=== PATIENT | female | born 1945 | race African-American/Black ===

== ENCOUNTER 2022-01-13 07:37 | Inpatient (IN) | payer MEDICARE, OTHER ==
[~2022-01-13] VITALS: Ht 162.6 cm; Wt 53.1 kg
[2022-01-13] VITALS (38 sets, daily range): BP systolic 66–130; BP diastolic 34–58
[2022-01-13] MEDS ORDERED: VANCOMYCIN 1 GM in IV D5W 250 ML IV ONE (08:00)
[2022-01-13] MEDS ORDERED: CEFEPIME 1 GM in IV D5W 50 ML IV ONE (08:00)
[2022-01-13] MEDS ORDERED: IV NS 0.9% 1,000 ML BAG IV ONE (08:00)
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
[2022-01-13] MEDS ORDERED: MINE133E RC (08:07)
[2022-01-13] MEDS ORDERED: FERR325T23 PO (08:07)
[2022-01-13] MEDS ORDERED: ASCO-352 PO (08:07)
[2022-01-13] MEDS ORDERED: ACET-868 PO (08:07)
[2022-01-13] MEDS ORDERED: MAGN400O6 PO (08:07)
[2022-01-13] MEDS ORDERED: NUT.237L30 GT (08:07)
[2022-01-13] MEDS ORDERED: TYL2T PO (08:07)
[2022-01-13] MEDS ORDERED: DOCU-141 PO (08:07)
[2022-01-13] MEDS ORDERED: LEVO112T2 PO (08:07)
[2022-01-13] MEDS ORDERED: ACET-2605 PO (08:07)
[2022-01-13] MEDS ORDERED: SENN-261 PO (08:07)
[2022-01-13] MEDS ORDERED: MULT-447 PO (08:07)
--- NOTE | 2022-01-13 08:11 | NUR ---
IV LINE IS ESTABLISHED, BLOOD SPECIMEN COLLECTED AND SENT TO THE LAB. THE LINE IS SALINE LOCKED.
--- NOTE | 2022-01-13 08:11 | NUR ---
URINE COLLECTED AND SENT TO THE LAB
[2022-01-13 08:23] LABS: BASOPHILS % (AUTO) 0.1 % (0.0-2.0); HEMATOCRIT 23 % (33-45); HEMOGLOBIN 7.4 g/dL (11.5-14.8); LYMPHOCYTES # (AUTO) 1.3 K/uL (0.8-4.8); MEAN CORPUSCULAR HGB CONC 33 g/dl (31.0-36.0); MEAN CORPUSCULAR VOLUME 94 fL (82-100); MONOCYTES # (AUTO) 0.5 K/uL (0.1-1.30); MONOCYTES % (AUTO) 3.8 % (2.0-12.0); NEUTROPHILS # (AUTO) 10.4 K/uL (1.8-8.9); NEUTROPHILS % (AUTO) 85.1 % (43.0-81.0); PLATELET COUNT (AUTO) 266 K/uL (150-450); WHITE BLOOD COUNT (AUTO) 12.2 K/uL (4.3-11.0)
--- NOTE | 2022-01-13 08:24 | NUR ---
COVID SWAB DONE AND SENT TO LAB
[2022-01-13 08:49] LABS: SERUM AMMONIA 125 umol/L (11-32)
[2022-01-13 09:49] LABS: BILIRUBIN,URINE NEGATIVE (NEGATIVE); COLOR,URINE YELLOW (YELLOW); LEUKOCYTE ESTERASE ,URINE SMALL (NEGATIVE); NITRITE, URINE NEGATIVE (NEGATIVE); PROTEIN,URINE TRACE mg/dl (NEGATIVE); UGLUCOSE NEGATIVE (NEGATIVE); UROBILINOGEN,URINE 0.2 EU/dL (0.2)
--- NOTE | 2022-01-13 10:10 | NUR ---
midline ordered by Dr Cisneros. noted and carried out. Nursing sup made aware.
--- NOTE | 2022-01-13 10:10 | NUR ---
DR HUFF MADE AWARE BP IF 94/49 AND PULSE 72. WAITING FOR ORDERS.
[2022-01-13 10:12] LABS: POTASSIUM 4.5 mmol/L (3.5-5.1); SODIUM SERUM 139 mmol/L (136-145)
[2022-01-13 10:13] LABS: CARBON DIOXIDE 11 mmol/L (21-32); CHLORIDE 104 mmol/L (98-107); CREATININE 3.5 mg/dL (0.6-1.3); GLUCOSE 161 mg/dL (74-106); UREA NITROGEN, BLOOD > 150 mg/dL (7-18)
--- NOTE | 2022-01-13 10:14 | NUR ---
CALLED NURSING SUP REGARDING PT BED
[2022-01-13] MEDS ORDERED: MAGNESIUM HYDROXIDE 30 ML UDC PO PRN (10:30)
[2022-01-13] MEDS ORDERED: MIDODRINE HCL (5MG) 5 MG TABLET PO STA (10:35)
[2022-01-13 10:36] LABS: ALANINE AMINOTRANSFERASE 27 U/L (12-78); ALBUMIN 2.2 g/dL (3.4-5.0); ALKALINE PHOSPHATASE 51 U/L (46-116); ASPARTATE AMINOTRANSFERASE 47 U/L (15-37); BILIRUBIN,DIRECT 0.1 mg/dL (0.0-0.2); BILIRUBIN,TOTAL 0.4 mg/dL (0.2-1.0); TOTAL PROTEIN, SERUM 6.3 g/dL (6.4-8.2)
[2022-01-13] MEDS ORDERED: MIDODRINE HCL (5MG) 5 MG TABLET ONE (10:39)
[2022-01-13 11:00] LABS: PH,URINE >9.0 (5.0-8.0)
[2022-01-13] MEDS ORDERED: IV NS 0.9% 1,000 ML IV ONE ×2 (11:00→14:30)
[2022-01-13 11:08] LABS: ABG BASE EXCESS -14.7 mmol/L; ABG PCO2 23.4 mmHg (35.0-45.0); ABG PH 7.275 (7.350-7.450); ABG PO2 139.5 mmHg (75.0-100.0); COHb 0.5 % (0.5-1.5); MetHb 0.3 % (0.0-1.5); SITE, ABG Left Radial; VENT MODE, BG N/C
--- NOTE | 2022-01-13 11:39 | NUR ---
ROOM 253
[2022-01-13 11:54] LABS: BACTERIA,URINE Many /HPF (None Seen); RBC,URINE NONE SEEN /HPF (0-2); SQUAMOUS EPITHELIAL CELL,UR Few /HPF (None Seen)
[2022-01-13 11:55] LABS: TRIPLE PHOSPHATE CRYSTAL,UR Moderate /HPF (None Seen)
--- NOTE | 2022-01-13 12:00 | NUR ---
REPORT GIVEN TO NURSE DUDLEY FOR JAD
--- NOTE | 2022-01-13 12:26 | NUR ---
THE PATIENT IS TRANSFERED TO ROOM 253 IN STABLE CONDITION AND PER ACLS POLICY
[2022-01-13] MEDS ORDERED: FERROUS SULFATE (325 MG) 325 MG/TAB TABLET PO SCH (13:00)
--- NOTE | 2022-01-13 13:00 | NUR ---
ICU/RN PT ADMITTED FROM ER .ON 15L NRM SAT O2-98%.HAS SOB .ALOC.RESPONDING ON PAIN STIMULATION.IV-HL.BP LOW.AFEBRILE.HAS G-TUBE CLAMPED.ABDOMEN DISTENDED G-TUBE SIDE RED AND SWOLLEN WITH FOUL GASTRIC DISCHARGE AROUND AREA .MD NOTIFIED.F/C IN PLACE WITH YELLOW CLOUDY URINE WITH BAD SMELL.SACRAL WOUND 2.0-1.0-0.5 CM .DRESSING APPLIED.PHOTO TAKEN.WOUND CONSULT ORDERED.PT VOMIT.WITH FEEDING COLOR GASTRIC RESIDUAL. MD NOTIFIED.ZOFRAN ORDERED.1 L BOLUS ORDERED.OK START LEVOPHED IF NEEDED.SUCTION PROVIDED.REPOSITION FOR COMFORT.
[2022-01-13] MEDS ORDERED: ONDANSETRON HCL/PF 4 MG/2 ML VIAL IV PRN (13:30)
[2022-01-13] MEDS: PIPERACILLIN /TAZOBACTAM 2.25 G in IV D5W 50 ML IV SCH ×2 (13:56→20:07)
[2022-01-13 14:12] LABS: ABG BASE EXCESS -14.7 mmol/L; ABG OXYGEN SATURATION 98.5 % (92.0-98.5); ABG PH 7.271 (7.350-7.450); ABG PO2 333.3 mmHg (75.0-100.0); AaDO2 355.7 mmHg; COHb 0.3 % (0.5-1.5); MetHb 0.1 % (0.0-1.5); O2Hb 98.1 % (94.0-97.0); SITE, ABG Right Radial
[2022-01-13] MEDS ORDERED: NOREPINEPHRINE 8 MG in IV NS 0.9% 242 ML IV PRN (14:30)
[2022-01-13] MEDS: SOD FERRIC GLUC 125 MG in IV NS 0.9% 100 ML IV SCH (14:49)
[2022-01-13] MEDS: Sodium Bicarbonate 100 MEQ in IV D5W 1,000 ML IV SCH (14:49)
--- NOTE | 2022-01-13 14:59 | NUR ---
INTUBATED PT 7.5 @23, PULLED BACK ETT [address] SONG. CURRENTLY ON 21 CM LIP LINE. BILATERAL CHEST RISE. PLACED MECHANICAL VENT PER ORDER SETTINGS. PT SUCTIONED. ETT SECURED AND PATENT. VENT ALARMS ARE ON AND AUDIBLE. NO RESPIRATORY DISTRESS OR SOB NOTED AT THIS TIME. Addendum: 01/13/22 at 1501 by GRISELDA RAMÍREZ RT Amended: Links added.
--- NOTE | 2022-01-13 15:00 | NUR ---
ICU/RN DR MCKEON SEEN THE PT, ABG DONE.PT IS INTUBATED BY ER DOCTOR.DIPRIVAN STARTED ,LEVOPHED STARTED,NEW IV FLUIDS ORDERED BY DR MCKEON. RIGHT PICC LINE INSERTED.CONTINUE MONITORING.
[2022-01-13] MEDS: PROPOFOL 100 ML IV PRN (15:29)
[2022-01-13] MEDS ORDERED: NOREPINEPHRINE 8 MG in IV NS 0.9% 250ML IV PRN (15:30)
[2022-01-13] MEDS: NOREPINEPHRINE 8 MG in IV NS 0.9% 242 ML IV PRN (15:33)
[2022-01-13 16:02] LABS: ABG BASE EXCESS -15.1 mmol/L; ABG OXYGEN SATURATION 99.3 % (92.0-98.5); ABG PCO2 21.6 mmHg (35.0-45.0); ABG PH 7.285 (7.350-7.450); ABG PO2 454.3 mmHg (75.0-100.0); AaDO2 237.1 mmHg; COHb 0.8 % (0.5-1.5); MetHb 0.2 % (0.0-1.5); O2Hb 98.3 % (94.0-97.0); SITE, ABG Right Radial; VENT MODE, BG AC 26 450 +5 100%
[2022-01-13] MEDS ORDERED: ETOMIDATE 2 MG/ML VIAL IV ONE (16:41)
[2022-01-13] MEDS ORDERED: SUCCINYLCHOLINE CHLORIDE 20 MG/ML VIAL IV ONE (16:41)
[2022-01-13] MEDS ORDERED: HEPARIN SODIUM, PORCINE 5000 UNITS/1 ML VIAL SQ SCH (17:00)
--- NOTE | 2022-01-13 18:00 | NUR ---
ICU/RN PM CARE PROVIDED.WOUND DRESSING DONE ORDERED.DUE MEDS ARE GIVEN .BS DONE.OG TUBE WAS INSERTED.600 ML GASTRIC OUTPUT .G-TUBE CLAMPED.PT IS NPO. 1000ML FROM F/C CLOUDY URINE. PT IS ON DIPRIVAN.,LEVOPHED,BICARB DRIPS ORDERED.CONTINUE MONITORING.
[2022-01-13 18:26] LABS: BAND % (MANUAL) 8 % (0.0-5.0); LYMPHOCYTES % (MANUAL) 13 % (16-48); MONOCYTES % (MANUAL) 8 % (0-11.0); NEUTROPHILS % (MANUAL) 71 (42-76)
--- NOTE | 2022-01-13 19:00 | NUR ---
RECEIVED PT ON BED ORALLY INTUBATED , SETTING PER MD, FIO2 60% PEEP 5, TELE MONITOR READS SINUS RHYTHM 80'S PT HAVE PATTI PICC WITH ONGOING LEVOPHED @ 0.2 MCG/KG/MIN WILL TITRATE PER PROTOCOL,PROPOFOL@ 20 MCG/KG/MIN, AND NaHCO3 DRIP @ 100ML/HR HAVE RAC#18 PATENT AND FLUSHED HAVE LOVELACE IN PLACE WITH YELLOW URINE DRAINING VIA GRAVITY, HAVE GTUBE AND OGTUBE ON PLACED CLAMPED BED ON LOWEST POSITION AND LOCKED SIDERAILS UP X 2 WILL CONT TO MONITOR
[2022-01-13] MEDS ORDERED: DEXTROSE 50%-WATER 50 ML DISP.SYRIN IV PRN (19:30)
[2022-01-13] MEDS: Z GUARD REMEDY 4 OZ OINT TP SCH (20:07)
[2022-01-13] MEDS: IV NS 0.9% 250 ML IV PRN (21:13)
[2022-01-13] MEDS: BLOOD SUGAR DIAGNOSTIC 1 EACH STRIP IN SCH (23:11)
[2022-01-13] MEDS: INSULIN REGULAR, HUMAN 100 UNIT/ML 3 ML VIAL SQ PRN (23:13)
[2022-01-14] VITALS (76 sets, daily range): BP systolic 81–148; BP diastolic 30–94
[2022-01-14] MEDS: Sodium Bicarbonate 100 MEQ in IV D5W 1,000 ML IV SCH ×3 (01:46→21:47)
[2022-01-14] MEDS: NOREPINEPHRINE 8 MG in IV NS 0.9% 242 ML IV PRN ×2 (02:32→14:31)
[2022-01-14] MEDS: PROPOFOL 100 ML IV PRN ×2 (02:46→22:04)
[2022-01-14 04:26] LABS: BASOPHILS % (AUTO) 0.1 % (0.0-2.0); EOSINOPHILS % (AUTO) 0.1 % (0.0-6.0); HEMATOCRIT 21 % (33-45); LYMPHOCYTES % (AUTO) 7.1 % (20.0-44.0); MEAN CORPUSCULAR HGB CONC 33 g/dl (31.0-36.0); MEAN CORPUSCULAR VOLUME 93 fL (82-100); MONOCYTES # (AUTO) 0.3 K/uL (0.1-1.30); MONOCYTES % (AUTO) 2.2 % (2.0-12.0); NEUTROPHILS # (AUTO) 12.9 K/uL (1.8-8.9); NEUTROPHILS % (AUTO) 90.5 % (43.0-81.0); PLATELET COUNT (AUTO) 266 K/uL (150-450); RED BLOOD CELL COUNT(AUTO) 2.25 MIL/uL (4.0-5.2); WHITE BLOOD COUNT (AUTO) 14.3 K/uL (4.3-11.0)
[2022-01-14 04:35] LABS: IRON, SERUM 33 ug/dl (50-175); TOTAL IRON BINDING CAPACITY 159 ug/dl (250-450)
[2022-01-14 04:39] LABS: SERUM AMMONIA 72 umol/L (11-32)
[2022-01-14 04:40] LABS: THYROID STIMULATING HORMONE 45.361 uIU/mL (0.358-3.74)
[2022-01-14 05:01] LABS: HEMOGLOBIN 6.9 g/dL (11.5-14.8)
[2022-01-14] MEDS: PIPERACILLIN /TAZOBACTAM 2.25 G in IV D5W 50 ML IV SCH ×3 (05:20→21:56)
[2022-01-14] MEDS: BLOOD SUGAR DIAGNOSTIC 1 EACH STRIP IN SCH ×3 (05:44→18:24)
[2022-01-14] MEDS: INSULIN REGULAR, HUMAN 100 UNIT/ML 3 ML VIAL SQ PRN ×2 (05:46→12:02)
[2022-01-14 05:55] LABS: BAND % (MANUAL) 11 % (0.0-5.0); LYMPHOCYTES % (MANUAL) 8 % (16-48); METAMYELOCYTES % 1 % (0-0); MONOCYTES % (MANUAL) 2 % (0-11.0); NEUTROPHILS % (MANUAL) 78 (42-76)
--- NOTE | 2022-01-14 06:28 | NUR ---
REPORTED TO DR MIKE ABOUT THE HGB -6.9 AND HCT 21 WITH ORDER TO TRANSFUSE 1PRBC NOTED AND CARRIED OUT
--- NOTE | 2022-01-14 06:29 | NUR ---
TELEPHONE CONSENT FOR BLOOD TRANSFUSION SECURE FROM PT SON SOSA GÓMEZ [phone], ALSO GIVE UPDATE TO HIM ABOUT THE PT CONDITION
[2022-01-14 07:03] LABS: ALANINE AMINOTRANSFERASE 22 U/L (12-78); ALBUMIN 1.8 g/dL (3.4-5.0); ALKALINE PHOSPHATASE 57 U/L (46-116); ASPARTATE AMINOTRANSFERASE 33 U/L (15-37); BILIRUBIN,TOTAL 0.4 mg/dL (0.2-1.0); CALCIUM, SERUM 7.1 mg/dL (8.5-10.1); CARBON DIOXIDE 15 mmol/L (21-32); CHLORIDE 109 mmol/L (98-107); CREATININE 2.6 mg/dL (0.6-1.3); GLUCOSE 185 mg/dL (74-106); SODIUM SERUM 144 mmol/L (136-145); TOTAL PROTEIN, SERUM 5.5 g/dL (6.4-8.2)
--- NOTE | 2022-01-14 07:10 | NUR ---
RN OPENING NOTES RECEIVED PT IN BED, ORALLY INTUBATED 7.5/23CM ON THE LIP. VENT SETTINGS FOLLOWS, AC: 26, TV 450, FIO2 40% AND PEEP OF 5. TELE MONITOR READING SR. IV ACCESS ON PATTI PICC WITH ONGOING LEVOPHED @0.2 MCG/KG/MIN, PROPOFOL @20 MCG/KG/MIN, AND NaHCO3 DRIP @100ML/HR. R AC#18 BOTH INTACT, PATENT AND FLUSHED. LOVELACE CATH IN PLACE WITH YELLOW URINE DRAINING VIA GRAVITY. GTUBE AND OGTUBE IN PLACE. CHECKED FOR POSITIVE PLACEMENT. SAFETY MEASURES IN PLACE. BED LOCKED AND IN LOWEST POSITION WITH SIDERAILS UP X 3. WILL CONTINUE TO MONITOR.
[2022-01-14 07:12] LABS: UREA NITROGEN, BLOOD 193 mg/dL (7-18)
[2022-01-14] MEDS ORDERED: LEVOTHYROXINE SODIUM 112 MCG TABLET PO SCH (07:30)
[2022-01-14] MEDS: MULTIVIT W/MINERALS 1 TAB TABLET PO SCH (08:16)
[2022-01-14] MEDS: ASCORBIC ACID 500 MG TABLET PO SCH (08:16)
[2022-01-14] MEDS: Z GUARD REMEDY 4 OZ OINT TP SCH ×2 (08:17→22:08)
[2022-01-14 08:36] LABS: ABG BASE EXCESS -7.6 mmol/L; ABG OXYGEN SATURATION 98.5 % (92.0-98.5); ABG PCO2 22.4 mmHg (35.0-45.0); ABG PH 7.455 (7.350-7.450); ABG PO2 185.5 mmHg (75.0-100.0); AaDO2 73.9 mmHg; COHb 0.9 % (0.5-1.5); MetHb 0.1 % (0.0-1.5); O2Hb 97.5 % (94.0-97.0); PEEP,BG 5 cm H2O; SITE, ABG Right Radial; VT, ABG 450 mL
--- NOTE | 2022-01-14 08:44 | NUR ---
WOUND CARE CONSULT: PT PRESENTS WITH SACRAL STAGE 4 ULCER AND RT BUTTOCK INTACT DEEP TISSUE INJURY OVER SCARRING, PRESENT ON ADMISSION. PT IS VERY THIN AND BONY. THICKENED TISSUE NOTED TO G TUBE SITE. SURGICAL CONSULT CALLED TO DR CORDERO. RECOMMENDATIONS MADE FOR SKIN PROTECTION AND DISCUSSED WITH NURSING STAFF. IN AGREEMENT WITH PLAN OF CARE. FIRST STEP LOW AIRLOSS MATTRESS IS ON ORDER. Addendum: 01/14/22 at 0845 by MC JONES WNDNU Amended: Links added.
[2022-01-14] MEDS: ACETAMINOPHEN 325 MG TABLET PO PRN (10:54)
[2022-01-14] MEDS ORDERED: INSULIN GLARGINE, 100 UNIT/ML CARTRIDGE SQ SCH (11:00)
[2022-01-14] MEDS: SOD FERRIC GLUC 125 MG in IV NS 0.9% 100 ML IV SCH (14:26)
[2022-01-14] MEDS: DAKINS QUARTER STRENGTH (0.125%) 480 ML BOTTLE TOP SCH (15:29)
--- NOTE | 2022-01-14 15:50 | NUR ---
RN NOTES REPORT GIVEN TO TO TREMAYNE TRAN FOR JAD.
--- NOTE | 2022-01-14 19:17 | NUR ---
RCVD PT ORALLY INTUBATED WITH 7.5 ETT SECURED @ 21 CM LIP LINE ON VENT WITH THE SETTING OF AC 18,VT 400,FIO2 40%, PEEP 5. PT IS SEDATED. SUCTIONED SMALL AMOUNT OF YELLOW THIN SECRETIONS. VENT PLUGGED INTO RED OUTLET, VENT ALARMS ON AND AUDIBLE. WILL CONTINUE TO MONITOR PT T/O SHIFT.
[2022-01-14] MEDS ORDERED: VANCOMYCIN 0.75 GM in IV D5W 250 ML IV SCH (20:00)
--- NOTE | 2022-01-14 20:00 | NUR ---
agricultural education instructor.received the pt rest in bed. orally intubated. sedatedw ith propofol. remaining same vent settings tolerated well. sat 98%. no acute distress noted. supply chain generalist showing nsr. iv rt upper arm picc line ivf bicarb drip 100ml/h, levophed 0.1mcg/kg/min, propoffol 20mcg/kg/min, hob elevated. ogt and gt intact. fc patent. urine draining. will continue to monitor vitals.
[2022-01-14] MEDS: IV NS 0.9% 250 ML IV PRN (21:52)
[2022-01-14] MEDS: MUPIROCIN OINT 2% 22 GM TUBE NS SCH (21:57)
[2022-01-14] MEDS: FAMOTIDINE/PF INJ 20 MG/2 ML VIAL IV SCH (22:08)
[2022-01-15] VITALS (49 sets, daily range): BP systolic 66–155; BP diastolic 21–69
[2022-01-15] MEDS: BLOOD SUGAR DIAGNOSTIC 1 EACH STRIP IN SCH ×5 (00:42→23:29)
[2022-01-15] MEDS: NOREPINEPHRINE 8 MG in IV NS 0.9% 242 ML IV PRN (04:40)
--- NOTE | 2022-01-15 05:00 | NUR ---
auricular detoxification specialist. héctor madrigal given remaining same vent settings tolerated well. sat 98%, no acute distress noted. gambling monitor showing nsr, iv rt upper arm picc line. bicarb 100ml/h, propofol 20mcg/kg/min, levophed 0.1mcg/kg/min, , hob elevated. turn and reposition q2h. will continue to monitor vitals.
[2022-01-15 05:58] LABS: CALCIUM, SERUM 7.7 mg/dL (8.5-10.1); CARBON DIOXIDE 23 mmol/L (21-32); CHLORIDE 109 mmol/L (98-107); CREATININE 2.1 mg/dL (0.6-1.3); GLUCOSE 125 mg/dL (74-106)
[2022-01-15 06:05] LABS: SODIUM SERUM 147 mmol/L (136-145)
[2022-01-15] MEDS: PIPERACILLIN /TAZOBACTAM 2.25 G in IV D5W 50 ML IV SCH ×3 (06:12→20:00)
[2022-01-15 06:13] LABS: POTASSIUM 2.3 mmol/L (3.5-5.1)
[2022-01-15 06:14] LABS: UREA NITROGEN, BLOOD 139 mg/dL (7-18)
[2022-01-15] MEDS ORDERED: POTASSIUM CHLORIDE 20 MEQ POWDER PACKET GT ONE (07:00)
--- NOTE | 2022-01-15 07:02 | NUR ---
curriculum development manager. potassium 2.3. notified md mims. 80 meq potassium via gt ordered.
[2022-01-15 07:08] LABS: BASOPHILS % (AUTO) 0.1 % (0.0-2.0); EOSINOPHILS % (AUTO) 0.3 % (0.0-6.0); HEMATOCRIT 25 % (33-45); HEMOGLOBIN 8.3 g/dL (11.5-14.8); LYMPHOCYTES # (AUTO) 1.8 K/uL (0.8-4.8); LYMPHOCYTES % (AUTO) 8.6 % (20.0-44.0); MEAN CORPUSCULAR HGB CONC 33 g/dl (31.0-36.0); MEAN CORPUSCULAR VOLUME 93 fL (82-100); MONOCYTES # (AUTO) 0.3 K/uL (0.1-1.30); MONOCYTES % (AUTO) 1.6 % (2.0-12.0); NEUTROPHILS # (AUTO) 18.6 K/uL (1.8-8.9); NEUTROPHILS % (AUTO) 89.4 % (43.0-81.0); PLATELET COUNT (AUTO) 235 K/uL (150-450); RED BLOOD CELL COUNT(AUTO) 2.72 MIL/uL (4.0-5.2); WHITE BLOOD COUNT (AUTO) 20.8 K/uL (4.3-11.0)
[2022-01-15] MEDS ORDERED: LEVOTHYROXINE SODIUM 112 MCG TABLET PO SCH (07:30)
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
[2022-01-15] MEDS ORDERED: VANCOMYCIN 0.75 GM in IV D5W 250 ML IV SCH (08:00)
[2022-01-15 08:06] LABS: ABG BASE EXCESS 1.5 mmol/L; ABG OXYGEN SATURATION 92.5 % (92.0-98.5); ABG PCO2 30.3 mmHg (35.0-45.0); ABG PO2 65.8 mmHg (75.0-100.0); AaDO2 184.6 mmHg; COHb 1.1 % (0.5-1.5); O2Hb 91.5 % (94.0-97.0); SITE, ABG Right Radial
[2022-01-15] MEDS: MULTIVIT W/MINERALS 1 TAB TABLET PO SCH (08:08)
[2022-01-15] MEDS: ASCORBIC ACID 500 MG TABLET PO SCH (08:08)
[2022-01-15] MEDS: FAMOTIDINE/PF INJ 20 MG/2 ML VIAL IV SCH ×2 (08:08→21:00)
[2022-01-15] MEDS: MUPIROCIN OINT 2% 22 GM TUBE NS SCH ×2 (08:10→21:00)
[2022-01-15] MEDS: Z GUARD REMEDY 4 OZ OINT TP SCH ×2 (08:11→21:00)
[2022-01-15] MEDS: DAKINS QUARTER STRENGTH (0.125%) 480 ML BOTTLE TOP SCH (08:12)
[2022-01-15] MEDS: Potassium Chloride 20 MEQ in IV NS 0.9% 1,000 ML IV PRN ×2 (10:25→20:30)
[2022-01-15] MEDS: MIDODRINE HCL (5MG) 5 MG TABLET PO SCH ×3 (10:26→17:12)
[2022-01-15] MEDS ORDERED: Sodium Bicarbonate 100 MEQ in IV D5W 1,000 ML IV PRN (12:00)
--- NOTE | 2022-01-15 12:00 | NUR ---
RN NOTE PT BS 87. PER SLIDING SCALE, NO COVERAGE NEEDED AT THIS TIME.
[2022-01-15] MEDS: METOCLOPRAMIDE HCL 10 MG/2 ML VIAL IV SCH ×3 (12:43→23:29)
[2022-01-15] MEDS: GLUCERNA 1.2 1,000 ML BOTTLE GT PRN (13:16)
--- NOTE | 2022-01-15 13:30 | NUR ---
RN NOTE TF STARTED WITH GLUCERNA 1.2 @10ML/HR. WILL CHECK FOR RESIDUAL AND INCREASE TF TOLERATED TO REACH GOAL OF 55ML/HR.
--- NOTE | 2022-01-15 14:00 | NUR ---
RN NOTE TF STARTED AT THIS TIME AT 10ML/HR. WILL ASSESS FOR TOLERATION.
[2022-01-15] MEDS: SOD FERRIC GLUC 125 MG in IV NS 0.9% 100 ML IV SCH (14:40)
[2022-01-15] MEDS: PROPOFOL 100 ML IV PRN (15:32)
--- NOTE | 2022-01-15 17:25 | NUR ---
RN NOTE PT BS 100. PER SLIDING SCALE, NO COVERAGE NEEDED AT THIS TIME.
--- NOTE | 2022-01-15 19:29 | NUR ---
RN CLOSING NOTE PT IS LYING IN BED WITH HOB 30 DEGREES. PT IS ON MECHANICAL VENT WITH ALL PRESCRIBED SETTINGS SAT 100% TOLERATING WELL WITH NO SIGNS OF DISTRESS OR LABORED BREATHING. PT IS SEDATED WITH DIPROVAN @20MCG/HR. GTUBE IS IN PLACE INFUSING WITH GLUCERNA 1.2 @10ML/HR WITH GOAL OF 55ML/HR TOLERATED. FC IS IN PLACE AND DRAINING URINE BY GRAVITY -1050ML. IV ACCESS R UA PICC INFUSING WITH 2O MEQ POTASSIUM CHLORIDE @100ML/HR. BED IS LOCKED IN LOWEST POSITION AND ALL HOSPITAL SAFETY MEASURES ARE IN PLACE. WILL ENDROSE TO GOLF COURSE ARCHITECT NURSE FOR JAD.
[2022-01-15] MEDS: IV NS 0.9% 250 ML IV PRN (20:30)
[2022-01-15] MEDS: VANCOMYCIN 0.75 GM in IV D5W 250 ML IV SCH (21:00)
[2022-01-16] VITALS (86 sets, daily range): BP systolic 74–142; BP diastolic 31–71
[2022-01-16] MEDS: NOREPINEPHRINE 8 MG in IV NS 0.9% 242 ML IV PRN (00:07)
[2022-01-16 04:08] LABS: EOSINOPHILS % (AUTO) 0.8 % (0.0-6.0); HEMATOCRIT 23 % (33-45); HEMOGLOBIN 7.3 g/dL (11.5-14.8); LYMPHOCYTES # (AUTO) 1.3 K/uL (0.8-4.8); MEAN CORPUSCULAR HGB CONC 32 g/dl (31.0-36.0); MEAN CORPUSCULAR VOLUME 94 fL (82-100); MONOCYTES # (AUTO) 0.3 K/uL (0.1-1.30); MONOCYTES % (AUTO) 1.6 % (2.0-12.0); NEUTROPHILS # (AUTO) 17.1 K/uL (1.8-8.9); NEUTROPHILS % (AUTO) 90.6 % (43.0-81.0); PLATELET COUNT (AUTO) 193 K/uL (150-450); RED BLOOD CELL COUNT(AUTO) 2.41 MIL/uL (4.0-5.2); WHITE BLOOD COUNT (AUTO) 18.8 K/uL (4.3-11.0)
[2022-01-16] MEDS: PROPOFOL 100 ML IV PRN (04:30)
[2022-01-16] MEDS: PIPERACILLIN /TAZOBACTAM 2.25 G in IV D5W 50 ML IV SCH (04:30)
[2022-01-16 04:32] LABS: CALCIUM, SERUM 7.5 mg/dL (8.5-10.1); CARBON DIOXIDE 27 mmol/L (21-32); CHLORIDE 118 mmol/L (98-107); CREATININE 1.6 mg/dL (0.6-1.3); GLUCOSE 102 mg/dL (74-106); MAGNESIUM 1.6 mg/dL (1.8-2.4); POTASSIUM 3.5 mmol/L (3.5-5.1); SODIUM SERUM 152 mmol/L (136-145)
[2022-01-16 04:48] LABS: UREA NITROGEN, BLOOD 94 mg/dL (7-18)
[2022-01-16] MEDS ORDERED: PHENYLEPHRINE 10 MG/ML VIAL ONE (05:20)
[2022-01-16] MEDS: BLOOD SUGAR DIAGNOSTIC 1 EACH STRIP IN SCH ×4 (05:31→23:59)
[2022-01-16] MEDS: METOCLOPRAMIDE HCL 10 MG/2 ML VIAL IV SCH ×3 (05:31→17:44)
[2022-01-16 05:47] LABS: ABG BASE EXCESS 0.4 mmol/L; ABG OXYGEN SATURATION 98.2 % (92.0-98.5); ABG PCO2 33.8 mmHg (35.0-45.0); ABG PH 7.469 (7.350-7.450); ABG PO2 147.8 mmHg (75.0-100.0); AaDO2 98.5 mmHg; COHb 0.4 % (0.5-1.5); O2Hb 97.8 % (94.0-97.0); PEEP,BG 5 cm H2O; SITE, ABG Right Radial; VENT MODE, BG AC 12; VT, ABG 400 mL
--- NOTE | 2022-01-16 07:00 | NUR ---
RN NOTES RECEIVED PT ON BED, INTUBATED AND SEDATED, ON DIPRIVAN AT 30 MCG/KG/MIN. PT RESPONDS TO PAINFUL STIMULI , TOLERAING VENT SETTING WELL, O2 SAT WNL, IVF AT 100CC /HR RUNNING , R UPPER ARM PICC LINE SITE , CLEAN DRY AND INTACT, OGT FEEDING AT 45CC/HR RUNNING , NO RESIDUAL NOTED, ON TELE SR HR IN 70'S, SR UP x3, CALL LIGHT WITHIN EASY REACH, BED LOCKED AND IN LOWEST POSITION, CONTINUE TO MONITOR.
[2022-01-16] MEDS: Potassium Chloride 20 MEQ in IV NS 0.9% 1,000 ML IV PRN (07:10)
[2022-01-16] MEDS ORDERED: LEVOTHYROXINE SODIUM 125 MCG TABLET PO SCH (08:00)
[2022-01-16] MEDS: MULTIVIT W/MINERALS 1 TAB TABLET PO SCH (08:03)
[2022-01-16] MEDS: ASCORBIC ACID 500 MG TABLET PO SCH (08:03)
[2022-01-16] MEDS: MIDODRINE HCL (5MG) 5 MG TABLET PO SCH ×3 (08:03→16:35)
[2022-01-16] MEDS: MUPIROCIN OINT 2% 22 GM TUBE NS SCH ×2 (08:07→21:06)
[2022-01-16] MEDS: FAMOTIDINE/PF INJ 20 MG/2 ML VIAL IV SCH ×2 (08:07→21:05)
[2022-01-16] MEDS: DAKINS QUARTER STRENGTH (0.125%) 480 ML BOTTLE TOP SCH (08:08)
[2022-01-16] MEDS: Z GUARD REMEDY 4 OZ OINT TP SCH ×2 (08:09→21:06)
--- NOTE | 2022-01-16 08:30 | NUR ---
RN NOTES PT NOT FOLLOWING COMMAND, LETHARGIC, RESPONDS TO DEEP PAINFUL STIMULI, STILL OFF SEDATION , DR MCKEON NOTIFIED, PT WILL STAY OFF SEDATION PER MD ORDER .
[2022-01-16] MEDS ORDERED: Magnesium 1GM/D5W 100ML PREMIX 100 ML IV SCH (10:00)
--- NOTE | 2022-01-16 10:30 | NUR ---
RN NOTES DR MIKE NOTIFIED REGARDING MORNING LAB RESULTS . NO NEW ORDER GIVEN .
[2022-01-16] MEDS: INSULIN REGULAR, HUMAN 100 UNIT/ML 3 ML VIAL SQ PRN ×2 (12:28→17:41)
[2022-01-16] MEDS: PIPERACILLIN /TAZOBACTAM 3.375 G in IV D5W 100 ML IV SCH ×2 (12:30→23:59)
[2022-01-16] MEDS: SOD FERRIC GLUC 125 MG in IV NS 0.9% 100 ML IV SCH (14:47)
[2022-01-16] MEDS: ACETAMINOPHEN 325 MG TABLET PO PRN (15:29)
[2022-01-16] MEDS: GLUCERNA 1.2 1,000 ML BOTTLE GT PRN (15:29)
--- NOTE | 2022-01-16 16:00 | NUR ---
RN NOTES PT OFF SEDATION , OFF LEVO, STILL LETHARGIC , DOES NOT FOLLOW COMMAND, DR MIKE AWARE. CONTINUE TO MONITOR .
--- NOTE | 2022-01-16 17:00 | NUR ---
RN NOTES PT'S SON AND DAUGHTER AT THE BEDSIDE , SPEAKING WITH DR MIKE ON THE PHONE ,
--- NOTE | 2022-01-16 18:43 | NUR ---
RN NOTES PT REMAINS OFF SEDATION , OFF LEVO , INTUBATED, TOLERAING TF AT 55 CC / HR WELL, IV SITES CLEAN , DRY AND INTACT, T=99.0 AXILLARY , WILL ENDORSE TO SETTLEMENT TECHNICIAN NURSE FOR CONTINUITY OF CARE .
[2022-01-16] MEDS: VANCOMYCIN 0.75 GM in IV D5W 250 ML IV SCH (21:05)
[2022-01-17] VITALS (30 sets, daily range): BP systolic 103–132; BP diastolic 43–68
[2022-01-17 05:27] LABS: BASOPHILS % (AUTO) 0.1 % (0.0-2.0); EOSINOPHILS % (AUTO) 0.8 % (0.0-6.0); HEMATOCRIT 22 % (33-45); HEMOGLOBIN 7.1 g/dL (11.5-14.8); LYMPHOCYTES # (AUTO) 1.3 K/uL (0.8-4.8); LYMPHOCYTES % (AUTO) 7.9 % (20.0-44.0); MEAN CORPUSCULAR HGB CONC 32 g/dl (31.0-36.0); MEAN CORPUSCULAR VOLUME 96 fL (82-100); MONOCYTES # (AUTO) 0.3 K/uL (0.1-1.30); MONOCYTES % (AUTO) 1.6 % (2.0-12.0); NEUTROPHILS # (AUTO) 14.5 K/uL (1.8-8.9); NEUTROPHILS % (AUTO) 89.6 % (43.0-81.0); PLATELET COUNT (AUTO) 175 K/uL (150-450); RED BLOOD CELL COUNT(AUTO) 2.34 MIL/uL (4.0-5.2); WHITE BLOOD COUNT (AUTO) 16.2 K/uL (4.3-11.0)
[2022-01-17 05:46] LABS: CALCIUM, SERUM 7.6 mg/dL (8.5-10.1); CARBON DIOXIDE 24 mmol/L (21-32); CHLORIDE 118 mmol/L (98-107); CREATININE 1.5 mg/dL (0.6-1.3); GLUCOSE 137 mg/dL (74-106); MAGNESIUM 1.8 mg/dL (1.8-2.4); POTASSIUM 4.3 mmol/L (3.5-5.1); SODIUM SERUM 148 mmol/L (136-145); UREA NITROGEN, BLOOD 66 mg/dL (7-18)
[2022-01-17] MEDS: BLOOD SUGAR DIAGNOSTIC 1 EACH STRIP IN SCH ×4 (06:01→23:30)
[2022-01-17] MEDS: METOCLOPRAMIDE HCL 10 MG/2 ML VIAL IV SCH ×5 (06:01→23:30)
--- NOTE | 2022-01-17 07:45 | NUR ---
ICU/RN PT IS INTUBATED ON THE VENT AC MODE.NOT SEDATED.LEVOPHED DRIP OFF.V/S STABLE ,AFEBRILE.NO PAIN REPORTED AT THIS TIME.PT IS AWAKE ,POST CVA.BEDBOUND.G-TUBE CLAMPED.OG TUBE INFUSING WITH GLUCERNA AT 55 ML/HR 5 ML RESIDUAL NOTED.F/C DRAINING WITH YELLOW URINE.SACRAL WOUND COVERED WITH DRESSING.SUCTION PROVIDED.REPOSITION FOR COMFORT.LABS REVIEW.MD AWARE.
[2022-01-17] MEDS: ASCORBIC ACID 500 MG TABLET PO SCH (08:23)
[2022-01-17] MEDS: LEVOTHYROXINE SODIUM 50 MCG TABLET PO SCH (08:23)
[2022-01-17] MEDS: FAMOTIDINE/PF INJ 20 MG/2 ML VIAL IV SCH ×2 (08:23→21:45)
[2022-01-17] MEDS: MULTIVIT W/MINERALS 1 TAB TABLET PO SCH (08:23)
[2022-01-17] MEDS: MIDODRINE HCL (5MG) 5 MG TABLET PO SCH ×3 (08:24→17:04)
[2022-01-17] MEDS: MUPIROCIN OINT 2% 22 GM TUBE NS SCH ×2 (08:32→21:45)
[2022-01-17] MEDS: DAKINS QUARTER STRENGTH (0.125%) 480 ML BOTTLE TOP SCH (08:33)
[2022-01-17] MEDS: Z GUARD REMEDY 4 OZ OINT TP SCH ×2 (08:33→21:45)
--- NOTE | 2022-01-17 09:00 | NUR ---
ICU/RN DUE MEDS ARE GIVEN ORDERED.
[2022-01-17] MEDS: PIPERACILLIN /TAZOBACTAM 3.375 G in IV D5W 100 ML IV SCH ×2 (11:17→23:30)
[2022-01-17] MEDS: SOD FERRIC GLUC 125 MG in IV NS 0.9% 100 ML IV SCH (14:35)
[2022-01-17] MEDS: GLUCERNA 1.2 1,000 ML BOTTLE GT PRN (15:19)
--- NOTE | 2022-01-17 17:49 | NUR ---
ICU/RN PM CARE PROVIDED.WOUND DRESSING DONE ORDERED.OK TO REMOVED OG TUBE AND START G-TUBE FEEDING.V/STSABE.AFEBRILE.CONTINUE MONITORING.
[2022-01-17] MEDS: ACETAMINOPHEN 325 MG TABLET PO PRN (19:27)
[2022-01-17] MEDS: VANCOMYCIN 0.75 GM in IV D5W 250 ML IV SCH (20:00)
[2022-01-17] MEDS: INSULIN REGULAR, HUMAN 100 UNIT/ML 3 ML VIAL SQ PRN (23:41)
[2022-01-18] VITALS (30 sets, daily range): BP systolic 63–138; BP diastolic 28–76
[2022-01-18 05:31] LABS: CALCIUM, SERUM 7.6 mg/dL (8.5-10.1); CREATININE 1.3 mg/dL (0.6-1.3); POTASSIUM 4.8 mmol/L (3.5-5.1)
[2022-01-18] MEDS: BLOOD SUGAR DIAGNOSTIC 1 EACH STRIP IN SCH ×4 (06:01→23:11)
[2022-01-18] MEDS: METOCLOPRAMIDE HCL 10 MG/2 ML VIAL IV SCH ×4 (06:05→23:11)
[2022-01-18] MEDS: FAMOTIDINE/PF INJ 20 MG/2 ML VIAL IV SCH ×2 (08:26→20:00)
[2022-01-18] MEDS: MULTIVIT W/MINERALS 1 TAB TABLET PO SCH (08:26)
[2022-01-18] MEDS: ASCORBIC ACID 500 MG TABLET PO SCH (08:26)
[2022-01-18] MEDS: LEVOTHYROXINE SODIUM 50 MCG TABLET PO SCH (08:26)
[2022-01-18] MEDS: DAKINS QUARTER STRENGTH (0.125%) 480 ML BOTTLE TOP SCH (08:27)
[2022-01-18] MEDS: MIDODRINE HCL (5MG) 5 MG TABLET PO SCH ×3 (08:27→17:42)
[2022-01-18] MEDS: MUPIROCIN OINT 2% 22 GM TUBE NS SCH ×2 (08:27→20:00)
[2022-01-18] MEDS: Z GUARD REMEDY 4 OZ OINT TP SCH ×2 (08:29→20:01)
[2022-01-18] MEDS: PIPERACILLIN /TAZOBACTAM 3.375 G in IV D5W 100 ML IV SCH ×2 (13:26→23:00)
[2022-01-18] MEDS: VANCOMYCIN 0.75 GM in IV D5W 250 ML IV SCH (21:15)
[2022-01-19] VITALS (24 sets, daily range): BP systolic 95–141; BP diastolic 29–67
[2022-01-19 04:55] LABS: CALCIUM, SERUM 7.3 mg/dL (8.5-10.1); CREATININE 1.1 mg/dL (0.6-1.3); POTASSIUM 4.7 mmol/L (3.5-5.1)
[2022-01-19] MEDS: METOCLOPRAMIDE HCL 10 MG/2 ML VIAL IV SCH ×3 (05:04→18:07)
[2022-01-19] MEDS: BLOOD SUGAR DIAGNOSTIC 1 EACH STRIP IN SCH ×3 (05:04→18:07)
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
[2022-01-19] MEDS: ASCORBIC ACID 500 MG TABLET PO SCH (08:04)
[2022-01-19] MEDS: FAMOTIDINE/PF INJ 20 MG/2 ML VIAL IV SCH ×2 (08:04→21:29)
[2022-01-19] MEDS: MULTIVIT W/MINERALS 1 TAB TABLET PO SCH (08:04)
[2022-01-19] MEDS: MIDODRINE HCL (5MG) 5 MG TABLET PO SCH ×3 (08:05→18:07)
[2022-01-19] MEDS: DAKINS QUARTER STRENGTH (0.125%) 480 ML BOTTLE TOP SCH (08:08)
[2022-01-19] MEDS: LEVOTHYROXINE SODIUM 50 MCG TABLET PO SCH (08:08)
[2022-01-19] MEDS: Z GUARD REMEDY 4 OZ OINT TP SCH ×2 (08:08→21:30)
[2022-01-19] MEDS: MUPIROCIN OINT 2% 22 GM TUBE NS SCH ×2 (08:08→21:31)
[2022-01-19] MEDS: GLUCERNA 1.2 1,000 ML BOTTLE GT PRN (08:11)
--- NOTE | 2022-01-19 08:26 | NUR ---
VENT SETTINGS BELOW CHANGED FOR WEANING TRIAL PER DR. MKCEON: SIMV 4 PS 15 FIO2 30% PEEP +5 Addendum: 01/19/22 at 0827 by RENA PORTER RT Amended: Links added.
[2022-01-19 10:44] LABS: ABG BASE EXCESS -2.9 mmol/L; ABG OXYGEN SATURATION 97.9 % (92.0-98.5); ABG PCO2 34.2 mmHg (35.0-45.0); ABG PH 7.412 (7.350-7.450); ABG PO2 112.9 mmHg (75.0-100.0); AaDO2 60.8 mmHg; COHb 0.9 % (0.5-1.5); MetHb 0.3 % (0.0-1.5); O2Hb 96.7 % (94.0-97.0); PEEP,BG 5 cm H2O; SITE, ABG Right Radial; VENT MODE, BG SIMV 4 / PS 15; VT, ABG 400 mL
--- NOTE | 2022-01-19 10:55 | NUR ---
MD COMMUNICATION RN SPOKE TO MD ABOUT PT'S CBC LABS AND TREND OF [facility]. MD GAVE ORDERS, GIVE ONE UNIT OF BLOOD. RN ACKNOWLEDGED AND WILL ENTER/EXECUTE ORDERS DIRECTED.
--- NOTE | 2022-01-19 11:05 | NUR ---
@1105 pt. extubated and placed into 2 lpm o2 flow via nasal cannula. Addendum: 01/19/22 at 1110 by RENA PORTER RT Amended: Links added.
[2022-01-19] MEDS: PIPERACILLIN /TAZOBACTAM 3.375 G in IV D5W 100 ML IV SCH (12:29)
[2022-01-19] MEDS ORDERED: SILVER NITRATE APPLICATOR 1 EA BOX TP ONE (12:30)
[2022-01-19] MEDS ORDERED: LIDOCAINE 1%-EPI 1:100,000 50 ML VIAL IJ ONE (12:30)
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
--- NOTE | 2022-01-19 19:10 | NUR ---
RN OPENING NOTES RECEIVED PATIENT ON BED, SLEEPING, A/O X 1, RESPIRATORY EVEN AND UNLABORED, NO S/S OF DISTRESS NOTED. PATIENT NOTED WITH PATTI PICC LINE, INTACT IN PLACED, FLUSHED WITH NS . RUNNING WITH POTASSIUM 10MEQ IN 0.45 NS @ 50 ML/HR. WITH GTUBE IN PLACED, VERIFIED PLACEMENT BY AUSCULTATION, WITH RESIDUAL OF 10 ML UPON ASPIRATION, RUNNING WITH GLUCERNA 1.2 @ 55 ML/HR, HEAD OF BED KEPT ELEVATED. WITH RECTAL TUBE IN PLACE. ALL SAFETY PRECAUTION PROVIDED, BED IN LOWEST POSITION, LOCKED. CONTINUE TO MONITOR. Addendum: 01/20/22 at 0728 by DEIDRA KEMP RN PATIENT HAS NO RECTAL TUBE
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
[2022-01-20] VITALS (14 sets, daily range): BP systolic 80–147; BP diastolic 32–74
[2022-01-20] MEDS: BLOOD SUGAR DIAGNOSTIC 1 EACH STRIP IN SCH ×4 (00:47→18:29)
[2022-01-20] MEDS: PIPERACILLIN /TAZOBACTAM 3.375 G in IV D5W 100 ML IV SCH ×3 (00:49→20:26)
[2022-01-20] MEDS: METOCLOPRAMIDE HCL 10 MG/2 ML VIAL IV SCH ×4 (00:49→18:29)
[2022-01-20] MEDS: INSULIN REGULAR, HUMAN 100 UNIT/ML 3 ML VIAL SQ PRN (00:50)
--- NOTE | 2022-01-20 00:51 | NUR ---
RN NOTES REGULAR INSULIN NOT ADMINISTERED, BLOOD SUGAR 92 mg/dL, NO COVERAGE PER SLIDING SCALE.
[2022-01-20 04:54] LABS: CALCIUM, SERUM 7.2 mg/dL (8.5-10.1); CARBON DIOXIDE 25 mmol/L (21-32); CHLORIDE 108 mmol/L (98-107); GLUCOSE 129 mg/dL (74-106); MAGNESIUM 1.8 mg/dL (1.8-2.4); POTASSIUM 4.9 mmol/L (3.5-5.1); SODIUM SERUM 137 mmol/L (136-145); UREA NITROGEN, BLOOD 30 mg/dL (7-18)
[2022-01-20 05:01] LABS: BASOPHILS % (AUTO) 0.3 % (0.0-2.0); EOSINOPHILS % (AUTO) 0.9 % (0.0-6.0); HEMATOCRIT 23 % (33-45); HEMOGLOBIN 7.2 g/dL (11.5-14.8); LYMPHOCYTES # (AUTO) 1.1 K/uL (0.8-4.8); LYMPHOCYTES % (AUTO) 9.1 % (20.0-44.0); MEAN CORPUSCULAR HGB CONC 32 g/dl (31.0-36.0); MEAN CORPUSCULAR VOLUME 96 fL (82-100); MONOCYTES # (AUTO) 0.4 K/uL (0.1-1.30); NEUTROPHILS # (AUTO) 10.7 K/uL (1.8-8.9); NEUTROPHILS % (AUTO) 86.7 % (43.0-81.0); PLATELET COUNT (AUTO) 178 K/uL (150-450); RED BLOOD CELL COUNT(AUTO) 2.35 MIL/uL (4.0-5.2); WHITE BLOOD COUNT (AUTO) 12.3 K/uL (4.3-11.0)
[2022-01-20] MEDS: GLUCERNA 1.2 1,000 ML BOTTLE GT PRN (06:17)
--- NOTE | 2022-01-20 07:25 | NUR ---
RN CLOSING NOTES PATIENT REMAIN STABLE THROUGH OUT THE SHIFT, RESPIRATORY EVEN AND UNLABORED, NO S/S OF DISTRESS NOTED. STILL RUNNING WITH POTASSIUM 10MEQ IN 0.45 NS @ 50 ML/HR. RUNNING WITH GLUCERNA 1.2 @ 55 ML/HR, HEAD OF BED KEPT ELEVATED. ALL DUE MEDS GIVEN ORDER. DRESSING CHANGES ON SACRAL WOUND, PROCEDURE TOLERATED WELL. ALL SAFETY PRECAUTION PROVIDED, BED IN LOWEST POSITION, LOCKED.
[2022-01-20] MEDS: LEVOTHYROXINE SODIUM 50 MCG TABLET PO SCH (07:30)
[2022-01-20] MEDS ORDERED: FAMOTIDINE (20 MG) 20 MG TABLET PO SCH (09:00)
[2022-01-20] MEDS: MIDODRINE HCL (5MG) 5 MG TABLET PO SCH (09:04)
[2022-01-20] MEDS: MULTIVIT W/MINERALS 1 TAB TABLET PO SCH (09:04)
[2022-01-20] MEDS: ASCORBIC ACID 500 MG TABLET PO SCH (09:04)
[2022-01-20] MEDS: FAMOTIDINE (20 MG) 20 MG TABLET GT SCH ×2 (09:04→21:48)
[2022-01-20] MEDS: MUPIROCIN OINT 2% 22 GM TUBE NS SCH ×2 (09:05→22:00)
[2022-01-20] MEDS: Z GUARD REMEDY 4 OZ OINT TP SCH ×2 (09:05→21:49)
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
[2022-01-20] MEDS: DAKINS QUARTER STRENGTH (0.125%) 480 ML BOTTLE TOP SCH (12:10)
[2022-01-20] MEDS: VANCOMYCIN 0.75 GM in IV D5W 250 ML IV SCH (13:33)
--- NOTE | 2022-01-20 19:15 | NUR ---
RN OPENING NOTES RECEIVED PATIENT IN BED, RESTING.PATIENT IS A/O X 1, RESPIRATORY EVEN AND UNLABORED, NO S/S OF DISTRESS NOTED. PATIENT NOTED WITH PATTI PICC LINE, INTACT IN PLACED, FLUSHED WITH NS . WITH GTUBE.RUNNING WITH GLUCERNA 1.2 @ 55 ML/HR, HEAD OF BED KEPT ELEVATED. ALL SAFETY MEASURES IN PLACE, BED IN LOW POSITION, LOCKED, CALL LIGHT WITHIN REACH.
[2022-01-21] VITALS: BP 139/70
[2022-01-21] MEDS: BLOOD SUGAR DIAGNOSTIC 1 EACH STRIP IN SCH ×4 (00:08→17:07)
[2022-01-21] MEDS: METOCLOPRAMIDE HCL 10 MG/2 ML VIAL IV SCH ×4 (00:28→17:02)
[2022-01-21 04:00] VITALS: BP 135/63
[2022-01-21] MEDS: GLUCERNA 1.2 1,000 ML BOTTLE GT PRN (04:32)
[2022-01-21] MEDS: PIPERACILLIN /TAZOBACTAM 3.375 G in IV D5W 100 ML IV SCH ×3 (04:32→20:21)
[2022-01-21 06:22] LABS: BASOPHILS % (AUTO) 0.1 % (0.0-2.0); EOSINOPHILS % (AUTO) 0.7 % (0.0-6.0); HEMATOCRIT 29 % (33-45); HEMOGLOBIN 9.4 g/dL (11.5-14.8); MEAN CORPUSCULAR HGB CONC 33 g/dl (31.0-36.0); MEAN CORPUSCULAR VOLUME 95 fL (82-100); MONOCYTES # (AUTO) 0.3 K/uL (0.1-1.30); MONOCYTES % (AUTO) 3.1 % (2.0-12.0); NEUTROPHILS # (AUTO) 9.4 K/uL (1.8-8.9); NEUTROPHILS % (AUTO) 87.1 % (43.0-81.0); PLATELET COUNT (AUTO) 199 K/uL (150-450); RED BLOOD CELL COUNT(AUTO) 3.05 MIL/uL (4.0-5.2); WHITE BLOOD COUNT (AUTO) 10.8 K/uL (4.3-11.0)
[2022-01-21 06:32] LABS: CALCIUM, SERUM 8.1 mg/dL (8.5-10.1); POTASSIUM 4.7 mmol/L (3.5-5.1)
--- NOTE | 2022-01-21 07:35 | NUR ---
RN NOTE ALL PATIENT NEEDS MET THROUGHOUT THE NIGHT. IV FLUIDS NOT AVAILABLE, URBAN FROM PHARMACY AWARE, HE WILL PREPARE A BAG. PLAN OF CARE FOR PATIENT ENDORSED TO AM NURSE.
[2022-01-21 08:00] VITALS: BP 122/50
--- NOTE | 2022-01-21 08:00 | NUR ---
RN OPENING NOTES REPORT RECEIVED FROM MARC LENNON.PATIENT RESTING IN BED. A/O X1, NO SIGNS OF ACUTE DISTRESS NOTED. ON O2 @ 2LPM VIA N/C, NO SOB NOTED, BREATHING EVEN AND UNLABORED. WITH IV ACCESS, RIGHT UPPER ARM PICC LINE, INTACT AND PATENT. WITH G-TUBE PATENT AND INTACT, GLUCERNA @55ML/HR RUNNING, TOLERATED WELL. F/C INTACT, DRAINING CLEAR YELLOW URINE. SAFETY MEASURE IN PLACE, BED IN LOWEST LOCKED POSITION, SR UP, CALL LIGHT PLACED WITHIN EASY REACH. WILL CONTINUE TO MONITOR.
[2022-01-21] MEDS: LEVOTHYROXINE SODIUM 50 MCG TABLET PO SCH (08:18)
[2022-01-21] MEDS: MULTIVIT W/MINERALS 1 TAB TABLET PO SCH (08:19)
[2022-01-21] MEDS: FAMOTIDINE (20 MG) 20 MG TABLET GT SCH ×2 (08:19→20:21)
[2022-01-21] MEDS: ASCORBIC ACID 500 MG TABLET PO SCH (08:19)
[2022-01-21] MEDS: DAKINS QUARTER STRENGTH (0.125%) 480 ML BOTTLE TOP SCH (08:27)
[2022-01-21] MEDS: MUPIROCIN OINT 2% 22 GM TUBE NS SCH (08:28)
[2022-01-21] MEDS: Z GUARD REMEDY 4 OZ OINT TP SCH ×2 (08:29→20:21)
[2022-01-21] MEDS: INSULIN REGULAR, HUMAN 100 UNIT/ML 3 ML VIAL SQ PRN ×2 (11:40→17:09)
[2022-01-21 12:00] VITALS: BP 117/48
[2022-01-21] MEDS: VANCOMYCIN 0.75 GM in IV D5W 250 ML IV SCH (14:49)
[2022-01-21 16:00] VITALS: BP 141/91
[2022-01-21] MEDS ORDERED: IV NS 0.9% 1,000 ML IV PRN (17:30)
--- NOTE | 2022-01-21 18:43 | NUR ---
CIGARETTE MACHINES MECHANIC CLOSING NOTES PATIENT IN BED, ASLEEP. NO SIGNS OF ACUTE DISTRESS NOTED. REMAINS ON O2 @ 2LPM VIA N/S, NO SOB NOTED, BREATHING EVEN AND UNLABORED. ON TELE MONITOR CURRENTLY SHOWING SR @ 69. WITH RIGHT UPPER ARM PICC LINE, INTACT AND PATENT. G-TUBE INTACT WITH GLUCERNA 1.2 @ 55ML/HR RUNNING, TOLERATED WELL. F/C INTACT, DRAINING CLEAR YELLOW URINE. GOOD F/C CARE RENDERED. WOUND TREATMENT DONE. TURNED AND REPOSITIONED [id number]. ALL DUE MEDS GIVEN. ALL NEEDS ANTICIPATED AND ATTENDED. KEPT CLEAN AND COMFORTABLE. SAFETY MEASURES MAINTAINED. BED LOCKED AND IN LOWEST POSITION, SR UP, CALL LIGHT PLACED WITHIN EASY REACH. WILL ENDORSE TO NEXT SHIFT FOR CONTINUITY OF CARE.
--- NOTE | 2022-01-21 19:30 | NUR ---
RN OPENING NOTES RECEIVED CARE OF PATIENT WHILE PATIENT IN BED, ASLEEP, WAKES UP TO NAME, A/O X1, CONFUSED, ABLE TO MOUTH WORDS. PATIENT SHOWS NO SIGNS OF DISCOMFORT OR PAIN AT THIS TIME. PATIENT ON O2 VIA NC AT 2L/MIN, NO SOB NOTED, BREATHING EVEN AND UNLABORED. ON TELE MONITOR CURRENTLY SHOWING NSR WITH HR OF 70, NO DISTRESS NOTED. PATIENT WITH RIGHT UPPER ARM PICC LINE, INTACT AND PATENT. G-TUBE INTACT AND RUNNING WITH GLUCERNA 1.2 @ 55ML, TOLERATING WELL. PATIENT NOTED WITH LOVELACE, INTACT, DRAINING CLEAR YELLOW URINE. GOOD F/C CARE RENDERED. WOUND TREATMENT DONE. TURNED AND REPOSITIONED [id number]. NO SIGNIFICANT FINDINGS UPON INITIAL NURSING ASSESSMENTS. ALL SAFETY MEASURES MAINTAINED. BED LOCKED AND IN LOWEST POSITION, SIDE RAILS UP X2, CALL LIGHT PLACED WITHIN EASY REACH. WILL CONTINUE TO MONITOR.
[2022-01-21 20:00] VITALS: BP 127/55
[2022-01-22] VITALS: BP 118/47
[2022-01-22] MEDS: METOCLOPRAMIDE HCL 10 MG/2 ML VIAL IV SCH ×3 (00:21→11:35)
[2022-01-22] MEDS: BLOOD SUGAR DIAGNOSTIC 1 EACH STRIP IN SCH ×3 (00:36→11:49)
[2022-01-22] MEDS: PIPERACILLIN /TAZOBACTAM 3.375 G in IV D5W 100 ML IV SCH ×2 (03:24→11:35)
[2022-01-22] MEDS: GLUCERNA 1.2 1,000 ML BOTTLE GT PRN (03:24)
[2022-01-22] MEDS: ACETAMINOPHEN 325 MG TABLET PO PRN (03:25)
[2022-01-22 04:00] VITALS: BP 118/61
[2022-01-22 06:43] LABS: BASOPHILS % (AUTO) 0.3 % (0.0-2.0); EOSINOPHILS % (AUTO) 0.4 % (0.0-6.0); HEMATOCRIT 27 % (33-45); LYMPHOCYTES # (AUTO) 1.2 K/uL (0.8-4.8); LYMPHOCYTES % (AUTO) 12.8 % (20.0-44.0); MEAN CORPUSCULAR HGB CONC 33 g/dl (31.0-36.0); MEAN CORPUSCULAR VOLUME 95 fL (82-100); MONOCYTES # (AUTO) 0.3 K/uL (0.1-1.30); MONOCYTES % (AUTO) 3.4 % (2.0-12.0); NEUTROPHILS % (AUTO) 83.1 % (43.0-81.0); PLATELET COUNT (AUTO) 225 K/uL (150-450); RED BLOOD CELL COUNT(AUTO) 2.89 MIL/uL (4.0-5.2); WHITE BLOOD COUNT (AUTO) 9.6 K/uL (4.3-11.0)
--- NOTE | 2022-01-22 06:56 | NUR ---
RN CLOSING NOTES WILL ENDORSE CARE OF PATIENT TO AM NURSE WHILE PATIENT IN BED, ASLEEP, WAKES UP TO NAME, A/O X1, CONFUSED, ABLE TO MOUTH WORDS. PATIENT ABLE TO VERBALIZE NEEDS. ALL NEEDS MET THROUGHOUT SHIFT. NO SIGNIFICANT FINDINGS UPON ALL NURSING ASSESSMENTS. ALL DUE MEDS GIVEN. WOUND TREATMENT DONE. TURNED AND REPOSITIONED [id number]. ALL SAFETY MEASURES FOLLOWED. WILL ENDORSE TO AM NURSE FOR JAD.
[2022-01-22 07:04] LABS: POTASSIUM 5.1 mmol/L (3.5-5.1)
--- NOTE | 2022-01-22 07:37 | NUR ---
RN OPENING NOTES PATIENT RESTING IN BED. A/O X1, NO SIGNS OF ACUTE DISTRESS NOTED. ON O2 @ 2LPM VIA N/C, NO SOB NOTED, BREATHING EVEN AND UNLABORED. WITH IV ACCESS, RIGHT UPPER ARM PICC LINE, INTACT AND PATENT RUNNING NS AT 50MLS/HR. WITH G-TUBE PATENT AND INTACT, GLUCERNA @55ML/HR RUNNING. LOVELACE CATHETER NOTED, DRAINING CLEAR YELLOW URINE. SAFETY MEASURE IN PLACE, BED IN LOWEST LOCKED POSITION, SR UP, CALL LIGHT PLACED WITHIN EASY REACH.
[2022-01-22 08:00] VITALS: BP 123/56
[2022-01-22] MEDS: LEVOTHYROXINE SODIUM 50 MCG TABLET PO SCH (08:04)
[2022-01-22] MEDS: ASCORBIC ACID 500 MG TABLET PO SCH (08:04)
[2022-01-22] MEDS: MULTIVIT W/MINERALS 1 TAB TABLET PO SCH (08:04)
[2022-01-22] MEDS: FAMOTIDINE (20 MG) 20 MG TABLET GT SCH (08:04)
[2022-01-22] MEDS: DAKINS QUARTER STRENGTH (0.125%) 480 ML BOTTLE TOP SCH (08:05)
[2022-01-22] MEDS: Z GUARD REMEDY 4 OZ OINT TP SCH (08:05)
[2022-01-22] MEDS: INSULIN REGULAR, HUMAN 100 UNIT/ML 3 ML VIAL SQ PRN (11:49)
[2022-01-22] MEDS ORDERED: VANC750F2 IV (11:59)
[2022-01-22] MEDS ORDERED: PIPE3.379 IV (11:59)
[2022-01-22] MEDS ORDERED: LEVO50TA PO (11:59)
[2022-01-22 12:00] VITALS: BP 122/62
[2022-01-22] MEDS: VANCOMYCIN 0.75 GM in IV D5W 250 ML IV SCH (13:34)
[2022-01-22 16:00] VITALS: BP 109/58
--- NOTE | 2022-01-22 16:59 | NUR ---
RN NOTE PATIENT WAS D/C AND PICKED UP BY EMT TAKEN TO [facility] IN STABLE CONDITION. REPORT CALLED IN TO NURSE JAMES
== END 2022-01-22 17:00 | DRG 853 ==
LOC: ER 07:41 → TRANSITION 10:59 → ICU 11:38 → TELE1 01-20 10:50
PROVIDERS: ADMIT Internal Medicine; ATTEND Internal Medicine
PROC: 5A1955Z Respiratory Ventilation, Greater than 96 Consecutive Hours (ICD-10-PCS; principal; 2022-01-13)
PROC: 0BH18EZ Insertion of Endotracheal Airway into Trachea, Via Natural or Artificial Opening Endoscopic (ICD-10-PCS; 2022-01-13)
PROC: 02HV33Z Insertion of Infusion Device into Superior Vena Cava, Percutaneous Approach (ICD-10-PCS; 2022-01-13)
PROC: B548ZZA Ultrasonography of Superior Vena Cava, Guidance (ICD-10-PCS; 2022-01-13)
PROC: 30233N1 Transfusion of Nonautologous Red Blood Cells into Peripheral Vein, Percutaneous Approach (ICD-10-PCS; 2022-01-14)
PROC: 0KBP0ZZ Excision of Left Hip Muscle, Open Approach (ICD-10-PCS; 2022-01-19)
PROC: 0KBN0ZZ Excision of Right Hip Muscle, Open Approach (ICD-10-PCS; 2022-01-19)
DX: A41.59 Other Gram-negative sepsis (principal); L89.154 Pressure ulcer of sacral region, stage 4; E43 Unspecified severe protein-calorie malnutrition; J96.01 Acute respiratory failure with hypoxia; G92.8 Other toxic encephalopathy; J69.0 Pneumonitis due to inhalation of food and vomit; R65.21 Severe sepsis with septic shock; N17.0 Acute kidney failure with tubular necrosis; N39.0 Urinary tract infection, site not specified; E87.0 Hyperosmolality and hypernatremia; E87.2 Acidosis; K94.22 Gastrostomy infection; L03.311 Cellulitis of abdominal wall; E03.9 Hypothyroidism, unspecified; E11.9 Type 2 diabetes mellitus without complications; B96.1 Klebsiella pneumoniae [K. pneumoniae] as the cause of diseases classified elsewhere; B96.89 Other specified bacterial agents as the cause of diseases classified elsewhere; D64.9 Anemia, unspecified; E86.0 Dehydration; E87.5 Hyperkalemia; R13.10 Dysphagia, unspecified; Z79.890 Hormone replacement therapy; Z86.73 Personal history of transient ischemic attack (TIA), and cerebral infarction without residual deficits; Z93.1 Gastrostomy status; E88.09 Other disorders of plasma-protein metabolism, not elsewhere classified; F03.90 Unspecified dementia, unspecified severity, without behavioral disturbance, psychotic disturbance, mood disturbance, and anxiety; I10 Essential (primary) hypertension; F09 Unspecified mental disorder due to known physiological condition; Z68.20 Body mass index [BMI] 20.0-20.9, adult; L89.216 Pressure-induced deep tissue damage of right hip; L89.316 Pressure-induced deep tissue damage of right buttock; Y83.8 Other surgical procedures as the cause of abnormal reaction of the patient, or of later complication, without mention of misadventure at the time of the procedure; Y73.8 Miscellaneous gastroenterology and urology devices associated with adverse incidents, not elsewhere classified; Y92.129 Unspecified place in nursing home as the place of occurrence of the external cause; E87.6 Hypokalemia
CPT/HCPCS: 31720; 36415; 36569; 36600; 70450-TC; 71045-TC; 80048-TC; 80053-TC; 80076-TC; 80202-TC; 81001; 82140-TC; 82803-TC; 82962-TC; 83540-TC; 83605-TC; 83735-TC; 84443-TC; 84478-TC; 84484-TC; 85025-TC; 85730-TC; 86850-TC; 87040-TC; 87081-TC; 87086-TC; 87186-TC; 94002-TC; 94003-TC; 94760-TC; 94762-TC; 94799-TC; 97110-TC; 97112-TC; 97530-TC; A6253; A6403; C9803; G0378; J0330; J0692; J1644; J1815; J2370; J2405; J2543; J2765; J2916; J3370; J3475; J3480; J3490; J7030; J7040; J7050; J7060; J7070; P9016